=== PATIENT | female | born 1980 | race Two or more races ===

== ENCOUNTER 2024-05-05 14:10 | Outpatient (AMB) | payer OTHER, SELFPAY ==
--- NOTE | 2024-05-05 14:09 | HO.NEPHOV_ITS ---
Vital Signs 05/05/24 14:11 Height 5 ft 2 in Weight 123 lb BMI 22.5 Pulse 79 Pulse Source Pulse Oximeter Pulse Oximetry (%) 99 Oxygen Delivery Method Room Air Intake Visit Reasons: Persistent Hypotension/ Conf Chief Power Dispatcher Required: No Accompanied by: Spouse Allergies epinephrine Allergy (Verified 05/05/24 14:13) Unknown Iodinated Contrast Media Allergy (Verified 05/05/24 14:13) Unknown lidocaine Allergy (Verified 05/05/24 14:13) Unknown morphine Allergy (Verified 05/05/24 14:13) Unknown seafood Allergy (Verified 05/05/24 14:13) Unknown sulfadiazine Allergy (Verified 05/05/24 14:13) Unknown HPI Comments Details: I had the privilege of seeing Fatou in consultation for hypotension. She was accompanied by her . She recently has been having multitude of various symptoms for which she has seen GI, ENT, pulmonary and refinery operator visbreaking. She had a normal EGD. She was also seen by speech therapist who recommended modified barium swallow test. 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 MS or GBS was considered and she is due to have a neurological consultation. Her acetone choline receptor antibody test was normal. She continues to have persistent fatigue and hypotension. Her neurology appointment is in [place]. She is due to have an MRA of the brain with and without contrast. She also was found to have unintended weight loss. In the past she was taking Florinef which was causing her swelling. She has no urinary symptoms. She is not known to have any hypoglycemia, hyperkalemia, tachycardia. She does not have chest pain, paroxysmal nocturnal dyspnea, orthopnea or pedal edema. She is concerned about her ongoing symptoms without having a diagnosis. [facility] Medical History (Updated 06/08/24 @ 16:47 by Jean Claude Alarcon MD) Rosacea Prediabetes Polymorphous light eruption MARISELA (obstructive sleep apnea) Narrow complex tachycardia Mild intermittent asthma Migraine Hordeolum eyelid Heartburn GERD (gastroesophageal reflux disease) Fibromyalgia Chronic venous insufficiency Cervical spondylolysis Carpal tunnel syndrome Anxiety and depression Allergic rhinitis ADHD Surgical History H/O esophagogastroduodenoscopy Family History Father Asthma CAD (coronary artery disease) Depression Mother Migraine Sister Anxiety Review of Systems Const All systems reviewed & are unremarkable except as noted in HPI and below Physical Exam Vital Signs: Last Vital Signs Pulse 79 05/05/24 14:11 Pulse Ox 99 05/05/24 14:11 Oxygen Delivery Method Room Air 05/05/24 14:11 BMI result Body Mass Index 22.5 Const General: comfortable and no acute distress Orientation/consciousness: patient oriented x3 HEENT Head: Yes normocephalic Mouth: Normal oral and palatal mucosa present Eyes EOM: EOMs intact bilaterally Neck Neck: Yes supple Resp Auscultation: clear to auscultation bilaterally Cardio Jugular venous distension: no JVD Rate: regular rate GI Palpation (GI): Soft to palpation Auscultation: normal bowel sounds General: Yes no CVA tenderness Back/Spine/Pelvis Back: no CVA tenderness Skin General skin exam: no rashes or lesions noted Neuro General: patient oriented x3 and moves all extremities Extrem General: Yes no pedal edema Results Reviewed Nephrology Results: No Data to Display Assessment & Plan Assessment & Plan (1) Hypotension: Code(s): I95.9 - Hypotension, unspecified Category: Medical Qualifiers: Hypotension type: other hypotension type Qualified Code(s): I95.89 - Other hypotension Plan Fatou has multitude of symptoms and has seen various specialists. He is not known to have hyperkalemia, tachycardia, urinary symptoms, fever. I ordered serum cortisol and metanephrines. She is not known to have any liver disease, renal disease or cardiomyopathy. She is not sure whether she had an echocardiogram. She is due to see neurologist in [place]. I have started her on midodrine. She had taking Florinef in the past which has caused salt and water retention. She has never tried Droxidopa. She has no family history of any similar disorder. She was asked to maintain good hydration and wear MATHEW stockings. I will consider doing a 24 hour ambulatory blood pressure monitor on her ,pending how she is doing clinically the next visit. I did not make any other medication changes. Follow-up appointment given. Orders: Orders Cortisol Random 05/05/24 I95.9 - Hypotension, unspecified Metanephrines, Plasma 05/05/24 I95.9 - Hypotension, unspecified Medications: New midodrine 5 mg PO BID 60 tabs 3RF Coding Level of Care Code New Pt Level 4 (71937) Diagnoses Other specified hypotension I95.89 Hypotension type: other hypotension type
[2024-05-05 14:11] VITALS: PULSE 79; O2SAT 99; BMI 22.5
== END 2024-05-05 15:14 | disposition home or self-care (01) ==
PROVIDERS: PCP Internal Medicine; Visit Provider Internal Medicine Nephrology
DX: I95.89 Other hypotension (principal)
CPT/HCPCS: 99204

== ENCOUNTER → 2024-05-05 14:10 | Outpatient (BNVA) | payer OTHER, SELFPAY | PROVIDERS: PCP Internal Medicine; Visit Provider Internal Medicine Nephrology ==

== ENCOUNTER 2024-07-21 12:23 | Outpatient (AMB) | payer OTHER, SELFPAY ==
[2024-07-21 12:27] VITALS: BP 104/60; PULSE 75; O2SAT 99; BMI 22.5
--- NOTE | 2024-07-21 12:27 | HO.NEPHOV ---
Vital Signs 07/21/24 12:27 Height 5 ft 2 in Weight 123 lb 4 oz BMI 22.5 BP 104/60 Blood Pressure Location Rt brachial Position Sitting Pulse 75 Pulse Source Pulse Oximeter Pulse Oximetry (%) 99 Oxygen Delivery Method Room Air Intake Visit Reasons: Persistent Hypotension/ LVM Drywall Professional Required: No Accompanied by: Daughter Allergies epinephrine Allergy (Verified 07/21/24 12:30) Unknown Iodinated Contrast Media Allergy (Verified 07/21/24 12:30) Unknown lidocaine Allergy (Verified 07/21/24 12:30) Unknown morphine Allergy (Verified 07/21/24 12:30) Unknown seafood Allergy (Verified 07/21/24 12:30) Unknown sulfadiazine Allergy (Verified 07/21/24 12:30) Unknown HPI Comments Details: I had the privilege of seeing Fatou in follow up for hypotension. She was accompanied by her daughter. She recently has been having multitude of various symptoms for which she has seen GI, ENT, pulmonary and paralegal specialist. She had a normal EGD. She was also seen by speech therapist who recommended modified barium swallow test. 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 MS or GBS was considered and she had a neurological consultation in [place]. Her acetone choline receptor antibody test was normal. She had persistent fatigue and hypotension, but better. In the past she was taking Florinef which was causing her swelling. She has no urinary symptoms. She is not known to have any hypoglycemia, hyperkalemia, tachycardia. She does not have chest pain, paroxysmal nocturnal dyspnea, orthopnea or pedal edema. She was given Midodrine at the last visit which she could not continue due to side effects. [facility] Medical History (Updated 06/08/24 @ 16:47 by Jean Claude Alarcon MD) Rosacea Prediabetes Polymorphous light eruption MARISELA (obstructive sleep apnea) Narrow complex tachycardia Mild intermittent asthma Migraine Hordeolum eyelid Heartburn GERD (gastroesophageal reflux disease) Fibromyalgia Chronic venous insufficiency Cervical spondylolysis Carpal tunnel syndrome Anxiety and depression Allergic rhinitis ADHD Surgical History H/O esophagogastroduodenoscopy Family History Father Asthma CAD (coronary artery disease) Depression Mother Migraine Sister Anxiety Review of Systems Const All systems reviewed & are unremarkable except as noted in HPI and below Physical Exam Vital Signs: Last Vital Signs Pulse 75 07/21/24 12:27 BP 104/60 07/21/24 12:27 Pulse Ox 99 07/21/24 12:27 Oxygen Delivery Method Room Air 07/21/24 12:27 BMI result Body Mass Index 22.5 Const General: comfortable and no acute distress Orientation/consciousness: patient oriented x3 HEENT Head: Yes normocephalic Mouth: Normal oral and palatal mucosa present Eyes EOM: EOMs intact bilaterally Neck Neck: Yes supple Resp Auscultation: clear to auscultation bilaterally Cardio Jugular venous distension: no JVD Rate: regular rate GI Palpation (GI): Soft to palpation Auscultation: normal bowel sounds General: Yes no CVA tenderness Back/Spine/Pelvis Back: no CVA tenderness Skin General skin exam: no rashes or lesions noted Neuro General: patient oriented x3 and moves all extremities Extrem General: Yes no pedal edema Results Reviewed Nephrology Results: No Data to Display Assessment & Plan Assessment & Plan (1) Hypotension: Code(s): I95.9 - Hypotension, unspecified Category: Medical Qualifiers: Hypotension type: other hypotension type Qualified Code(s): I95.89 - Other hypotension Plan Fatou had multitude of symptoms and has seen various specialists. He is not known to have hyperkalemia, tachycardia, urinary symptoms, fever. At the last visit I ordered serum cortisol and metanephrines, which were not done yet. She is not known to have any liver disease, renal disease or cardiomyopathy. She is not sure whether she had an echocardiogram. She has seen neurologist in [place] who has done work up. She could not tolerate midodrine. She had taking Florinef in the past which has caused salt and water retention, which I may consider startimg at a lower dose if needed. She has never tried Droxidopa. She has no family history of any similar disorder. She was asked to maintain good hydration and wear MATHEW stockings. I did not make any other medication changes. Follow-up appointment given Coding Level of Care Code Est Pt Level 4 (27455) Diagnoses Other specified hypotension I95.89 Hypotension type: other hypotension type
== END 2024-07-21 12:54 | disposition home or self-care (01) ==
PROVIDERS: PCP Internal Medicine; Visit Provider Internal Medicine Nephrology
DX: I95.89 Other hypotension (principal)
CPT/HCPCS: 99213

== ENCOUNTER → 2024-07-21 12:23 | Outpatient (BNVA) | payer OTHER, SELFPAY | PROVIDERS: PCP Internal Medicine; Visit Provider Internal Medicine Nephrology ==

== ENCOUNTER 2025-01-14 09:52 | Outpatient (AMB) | payer OTHER, SELFPAY ==
--- NOTE | 2025-01-14 10:01 | HO.NEPHOV_ITS ---
Vital Signs 01/14/25 10:03 Height 5 ft 2 in Weight 131 lb 2 oz BMI 24.0 BP 90/60 Blood Pressure Location Rt brachial Position Sitting Intake Visit Reasons: Persistent Hypotension-LVM Automobile Wrecker Required: No Accompanied by: Self / Same As Patient Allergies epinephrine Allergy (Verified 01/14/25 10:03) Unknown Iodinated Contrast Media Allergy (Verified 01/14/25 10:03) Unknown lidocaine Allergy (Verified 01/14/25 10:03) Unknown morphine Allergy (Verified 01/14/25 10:03) Unknown seafood Allergy (Verified 01/14/25 10:03) Unknown sulfadiazine Allergy (Verified 01/14/25 10:03) Unknown HPI Comments Details: I had the privilege of seeing Fatou in follow up for hypotension. She was accompanied by her daughter. She recently has been having multitude of various symptoms for which she has seen GI, ENT, pulmonary and superintendent tests. She had a normal EGD. She was also seen by speech therapist who recommended modified barium swallow test which was fine. 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 MS or GBS was considered and she had a neurological follow up in [place]. Her acetone choline receptor antibody test was normal. She had persistent fatigue and hypotension, but better. In the past she was taking Florinef which was causing her swelling. She has no urinary symptoms. She is not known to have any hypoglycemia, hyper kalemia, tachycardia. She does not have chest pain, paroxysmal nocturnal dyspnea, orthopnea or pedal edema. She was given Midodrine at the last visit which she could not continue due to side effects [facility] Medical History (Updated 06/08/24 @ 16:47 by Jean Claude Alarcon MD) Rosacea Prediabetes Polymorphous light eruption MARISELA (obstructive sleep apnea) Narrow complex tachycardia Mild intermittent asthma Migraine Hordeolum eyelid Heartburn GERD (gastroesophageal reflux disease) Fibromyalgia Chronic venous insufficiency Cervical spondylolysis Carpal tunnel syndrome Anxiety and depression Allergic rhinitis ADHD Surgical History H/O esophagogastroduodenoscopy Family History Father Asthma CAD (coronary artery disease) Depression Mother Migraine Sister Anxiety Review of Systems Const All systems reviewed & are unremarkable except as noted in HPI and below Physical Exam Const General: comfortable and no acute distress Orientation/consciousness: patient oriented x3 HEENT Head: Yes normocephalic Mouth: Normal oral and palatal mucosa present Eyes EOM: EOMs intact bilaterally Neck Neck: Yes supple Resp Auscultation: clear to auscultation bilaterally Cardio Jugular venous distension: no JVD Rate: regular rate GI Palpation (GI): Soft to palpation Auscultation: normal bowel sounds General: Yes no CVA tenderness Back/Spine/Pelvis Back: no CVA tenderness Skin General skin exam: no rashes or lesions noted Neuro General: patient oriented x3 and moves all extremities Extrem General: Yes no pedal edema Results Reviewed Nephrology Results: No Data to Display Assessment & Plan Assessment & Plan (1) Hypotension: Code(s): I95.9 - Hypotension, unspecified Category: Medical Qualifiers: Hypotension type: other hypotension type Qualified Code(s): I95.89 - Other hypotension Plan Fatou had multitude of symptoms and has seen various specialists. He is not known to have hyperkalemia, tachycardia, urinary symptoms, fever. She is not known to have any liver disease, renal disease or cardiomyopathy. She is not sure whether she had an echocardiogram. She has seen neurologist in [place] who has done work up. She could not tolerate midodrine. She had taking Florinef in the past which has caused salt and water retention, which I may consider startimg at a lower dose if needed. She has never tried Droxidopa. She has no family history of any similar disorder. She was asked to maintain good hydration and wear MATHEW stockings. I did not make any other medication changes. Follow-up appointment given Coding Level of Care Code Est Pt Level 4 (97818) Diagnoses Other specified hypotension I95.89 Hypotension type: other hypotension type
[2025-01-14 10:03] VITALS: BP 90/60; BMI 24.0
--- OUTSIDE RECORDS SUMMARY | 2025-01-14 11:11 | XMS_ITS | Clinical Summary ---
Author Organization [facility] ity Address [address] [place] [address] Care Team Providers Care Cooker Mechanic Name Role Phone Gregory Cherry MD Primary Care Provider [phone] Medical History Medical History Date Comments Migraine without aura, witho ut mention of intractable migraine without mention of status migrainosus 03/21/2006 DX:Migraine without aura , without mention of intractable migraine without mention of status migrainosus Anxiety state, unspecified 03/21/2006 DX:An xiety state, unspecified; COMMENT: panic attacks Family History Medical History Relation Name Comments Arthritis Maternal Grandmother said to have osteoporosis Relation Name Status Comments Father Alive Maternal Grandmother Mother Alive Social History Tobacco Use Types Packs/Day Years Used Date Smoking Tobacco: Never Alcohol Use Standard Drinks/Week Comments No 0 (1 standard drink = 0.6 oz pur e alcohol) Comments Unknown Sex and Gender Information Value Date Recorded Sex Assigned at Not on file Legal Sex Female 5:42 AM EST Gender Identity Not on file Sexual Orientation Not on file Obstetrics History Plan of Treatment Health Maintenance Due Date Last Done Comments Breast Cancer Screening 1980 DTaP,Tdap,and Td Vaccines (1 - Tdap) 1999 Hepatitis B Vaccines (1 of 3 - 19+ 3-dose series) 1999 Cervical Cancer Screening: P ap Smear 2001 Depression Screening 11/20/2023 HIV Screening 11/20/2023 Hepatitis C Screening 11/20/2023 Social Influencers of Health Screening 11/20/2023 COVID-19 Vaccine (2023-2 5 season) 2024 Influenza Vaccine (#1) 2024 HIB Vaccines Aged Out No longer eligi ble based on patient's age to complete this topic HPV Vaccines Aged Out No longer eligi ble based on patient's age to complete this topic Hepatitis A Vaccines Aged Out No long er eligible based on patient's age to complete this topic IPV Vaccines Aged Out No longer eligi ble based on patient's age to complete this topic MMR Vaccines Aged Out No longer eligi ble based on patient's age to complete this topic Meningococcal ACWY Vaccine Aged Out N o longer eligible based on patient's age to complete this topic Meningococcal B Vacine Aged Out No lo nger eligible based on patient's age to complete this topic Pneumococcal Vaccine: Pediat rics (0 to 5 Years) and At-Risk Patients (6 to 64 Years) Aged Out No longer eligible b ased on patient's age to complete this topic RSV Immunization Patients Un samreen 20 months Aged Out No longer eligible b ased on patient's age to complete this topic Varicella Vaccines Aged Out No longer eligible based on patient's age to complete this topic Care Teams Cooker Mechanic Relationship Specialty Start Date End Date Gregory Cherry MD [address] [place] [id number] PCP - General 05/31/10
--- OUTSIDE RECORDS SUMMARY | 2025-01-14 11:11 | XMS_ITS ---
Author Name [facility] Organization Unknown History of Medication Use Medication Directions Dispensed Refills Start Date End Date Stat us OMEprazole (PriLOSEC) 40 MG capsule Take 1 capsule (40 mg total) by mouth every morning before breakfast. active famotidine (PEPCID) 20 MG tablet Take 1 tablet (20 mg total) by mouth nightly as needed for heartburn. active fexofenadine (PATRICIA) 60 MG tablet Take 1 tablet (60 mg total) by mouth 2 (two) times a day. Administer with water only; do not administer with fruit juices. active LORazepam (ATIVAN) 0.5 MG tablet Take 1 tablet (0.5 mg total) by mouth 3 times daily (every 8 hours) as needed. active barium sulfate (VARIBAR THIN) 40 % 36 g 36 g (90 mL), Oral, Once in imaging, contrast, Starting on Sun05/14/24 at 0857, For 1 dose, Radiology Appointment 05/14/2024 05/14/2024 completed barium sulfate (VARIBAR HONEY,VARIBAR NECTAR,TAGITOL V) 40 % 70 mL 70 mL, Oral, Once in imaging, contrast, Starting on Sun05/14/24 at 0857, For 1 dose, Radiology Appointment 05/14/2024 05/14/2024 completed barium sulfate (E-Z-DISK) tablet 700 mg 700 mg, Oral, Once in imaging, contrast, Starting on Sun05/14/24 at 0854, For 1 dose, Radiology Appointment 05/14/2024 05/14/2024 completed Problems Problem Status Onset Date Problem Type Date of Resolution Source Laryngopharyngeal reflux (LPR) active EncounterDiagnosisAct [facility] Dysphagia, pharyngoesophageal phase active EncounterDiagnosisAct [facility] Paradoxical vocal cord motion active EncounterDiagnosisAct [facility] Dysphonia active EncounterDiagnosisAct [facility] Encounters Encounter Type Encounter Reason Primary Diagnosis Location Date Ambulatory Dysphonia Dysphonia [facility] 01/07/2025 Ambulatory Dysphagia, unspecified [facility] Care Team Organization Name Specialty Phone Email Start Date End Da yael [facility] CIERRALUCAS Primary Care 05/14/2024 [facility] ANGE [facility] 05/14/2024 [facility] 04/29/2024
--- OUTSIDE RECORDS SUMMARY | 2025-01-14 11:11 | XMS_ITS | Encounter Summary ---
Author Organization [facility] Address [address] [place], [place] [id number] Care Team Providers Care Employment And Claims Aide Name Role Phone Carole Jensen MD Primary Care Provider Encounter Details Date Type Department Care Team (Latest Contact Info) Description 01/07/2025 Plan of Care Documentation [address] [phone] Social History Tobacco Use Types Packs/Day Years Used Date Smoking Tobacco: Never Smokeless Tobacco: Never Alcohol Use Standard Drinks/Week Comments Not Asked 0 (1 standard drink = 0.6 oz pur e alcohol) once or twice a month Sex and Gender Information Value Date Recorded Sex Assigned at Female 05/14/2024 8:25 AM EDT Gender Identity Female 05/14/2024 8:25 AM EDT Sexual Orientation Heterosexual (straight) 05/14 8:25 AM EDT documented as of this encounter Miscellaneous Notes * Outpatient Therapy SPOC - Marcela Vines CCC-ROLL CUTTER - 01/07/2025 1:50 PM EDT Images from the original note were not included. Speech Therapy Plan of Care Diagnoses ICD-10-CM 1. Dysphonia R49.0 2. Dysphagia, pharyngoesophageal phase R13.14 3. 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 Laryngopharyngeal reflux (LPR) K21.9 Assessment - SunJanuary 07, 2025 Row Name Evaluation from 01/07/2025 in [facility] Assessment Assessment details Pt is a 44 year old female referred to outpatient speech therapy for dysphonia by her ENT physician. PMH includes anxiety, asthma, fibromyalgia, GERD and a Chiari Malformation. Sheinitially saw ENT on 04/28/24 for c/o gradually worsening dysphagia, hoarseness and SOB. CT neck on 04/10 revealed soft palate appears slightly prominent in size locking the airway at the nasopharynx. There is mild asymmetry of the mucosal and oropharynx with the right side more prominent on the leftside. However, no focal lesion or abnormal enhancement. Per Dr. Mai's notes, voice is better in the morning and worse the more she talks with associated neck and facial pain/discomfort when talking. Laryngoscopy on 04/28/24 showed moderately severe atrophy bilaterally as well as signs of LPR. ENT suspected atrophy may be due to general deconditioning vs a symptom of her as yet undiagnosed condition. Concern for a neurological etiology; pt is being worked up by Neurology for sensory small fiber neuropathy. Modified Barium Swallow study on 05/14/24 revealed Minimal hesitation in initiation of oral transit. Normal Pharyngeal swallow across trials and consistencies, Intact oral motor exam, Hesitant initiation of oral transit, ?Anticipatory delay, Intact pharyngeal swallow- no airway compromise and no pharyngeal stasis, No esophageal stasis during esophageal sweep. Reportedly she has also had an upper endoscopy which was unrevealing. Pt also reports difficulty breathing and getting air in which happens on a daily basis. She feels out of breath/winded with talking, daily activities andalso at rest. She was given a diagnosis of asthma but does not recall pulmonary function testing orconsultation. This is made worse if cold air (e.g. air conditioning blows on her face. She was alsoreferred to pulmonology for dyspnea. Pt comes in today c/o hoarseness, difficulty singing (for fun/restorationist), reading for long periods of time. Her voice was worse in the past but she takes frequent vocal breaks. Symptoms began about a year ago.She reports it takes her long time to eat (? secondary to issues with TMJ) and her throat feels very dry, uncomfortable and very tight. She feels as though her vocal cords are pulled. Pt reports difficulty swallowing meats and thicker foods such as Greekyogurt. She continues to report difficulty breathing in especially if she exerts herself. She is uns ure of the results of her neurological testing but has been referred to rheumatology for ?Sjogren'sor Lupus. Clinical dysphagia and voice evaluations were completed today. Swallowing: Pt was assessed with puree, a dry cracker and thin liquids. Oral stage was a bit slow; ? Due to c/oTMJ; anticipatory anxiety re: swallowing may also play a role. Pharyngeal stage appeared fairly timely with good hyolaryngeal elevation. Pt c/o tightness with solids and there was some coughing with larger sips of thin liquids. However, pt c/o mucus and PND and she cleared her throat and occasiona lly coughed throughout today's evaluation. Given her normal results on an instrumental evaluation (MBS), suspect swallowing difficulties may be related to 1) muscle tension dysphagia and/or 2) esophageal deficits. Pt is not currently taking her medication for LPR regularly. Workup for Sjogren's is pending, and this disease is often associated with esophageal disorder. Recommend pt take her medication as prescribed (or check with provider as she does not like taking 40 mg of Omeprazole in the AM). GERD/LPR appears to be also related to her dysphonia and possible paradoxical vocal cord motion (See below). She could consider seeing a neuro GI-motility expert, especially if diagnosed with Sjogre n's. In the meantime, recommend she continue her regular diet with thin liquids with general aspiration precautions. Voice A variety of informal and formal assessment measures were used in today's session. 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 Pt's dysphonia is mild on formal testing but she reports a severe impact on her daily functioning. The Voice Handicap Index form (VHI, Karina et al., 1997) was administered to the patient. This gurvinder questionnaire style instrument designed to evaluate the degree negative impact on quality of lifesecondary to voice related difficulties. The VHI uses a 0-4 point scale to describe severity of impact felt in three domains (with scores in parentheses): functional (22/40-mod), physical (29/40-severe), and emotional (20/40-mod). The VHI score is 71/120 indicating that they feel severely impacted by function of voice. A superficial examination of pt's 's oral-facial musculature was conducted to assess the structure and function of articulators and their impact on speech and vocal mechanism. Their lips, tongue, jaw, hard palate, soft palate, and pharynx appeared symmetrical and within functional limits. Objective assessments were made of the patient's respiratory coordination while she sustained pitches and sibilants. The patient completed s:z ratio task which revealed 7.84 seconds for /s/ and 4.72 seconds for /z/ which is a ratio of 1.661, with a <1.4 norm. Patient was able to achieve a max phonation time /a/ for 6.71 seconds, with a 15-20 seconds norm. Laryngeal function studies were completed with the use of [employer] Speech, utilizing a dynamic handheldmicrophone. The /a/ vowel sound was sustained at ???a comfortable pitch and volume at 235.059 which was within the norm of 165-202 Hz (females in their 40's). Habitual pitch in reading phrases and passages (as well as at conversational level) was calculated to be 190.750 Hz, within norm of 165-202Hz (females in their 40's). Pitch range is 114.64 ranging from 173.95 Hz- 288.59 Hz. Average vocal intensity levels intensity of 59.4 dB, which is below norm. The Multi-Dimensional Voice Program (MDVP) was used to measure Jitter, Shimmer and the Noise to Harmonic Ratio (higher ratio indicative of increased dysphonia) on sustained ah. The patient's jitterwas measured at 1.036% (.633% (F with SD of .351)), shimmer at 1.599 % (shimmer: 1.997% (F with SD of .791)). The green indicates good vocal quality, and red indicates dysphonic qualities. The CPP (cepstral peak prominence) compares the amplitude of the cepstral peak (i.e., the dominant harmonic) to the expected amplitude of the peak as determined via linear regression. Their CPP on sustained ah was 7.885 dB, with norm of >4.0 dB. Their CPP on running speech was 3.595 dB. The higher the circled peak of cepstral energy above line, the better quality the voice demonstrates. /a/ Dickens passage Assessment of Dysphonia of Speech and Voice (ADSV) was used to measure Cepstral Spectral Index of Dysphonia (CSID), which is derived from the CPP (cepstral peak prominence), L/H ratio, and sex information through weighted multiple regression. CSID estimated dysphonia severity is a number between 0 and 100, with 100 being rated the most severe. However, at times, the CSID can generate a number below 0 or above 100; such an estimate represents an extremely normal and periodic voice or a profoundly abnormal and aperiodic voice, respectively. As such, the Cepstral Spectral Index of Dysphonia (CSID) is used to compare dysphonia severity over time. The patient's rating of their sustained ah is 8 8.361 today which is classified as a severe dysphonia (mild: 0-33, moderate: 34- 66, and severe: 67-100). CSID for CAPE-V Sentences is 16.72 which is classified as a mild dysphonia (mild: 0-33, moderate: 34-66, and severe: 67-100). Given pt's complaints, also suspect possibility of paradoxical cord motion which may be leading to her difficulty with inspiration. Pt also c/o some inspiratory stridor (not observed today). Pt scored a 41 on the Vocal Cord Dysfunction Questionnaire (normal is below 12). She would therefore benefitfrom breathing exercises for PVCM and possibly inspiratory muscle training. In summary, pt presents with a variety of voice and swallowing complaints which may be related to vocal cord atrophy, compensatory muscle tension, ? esophageal deficits, LPR. She would benefit from skilled speech therapy 1x/week to address swallowing and voice, to include laryngeal relaxation/kenny therapy, LPR education, Vocal Function Exercises, PVCM breathing exercises, and respiratory muscletraining. Speech therapy is medically indicated to improve her safety, social and vocational functioning. POC Details Precautions none Barriers to therapy no Special communication needs no Does patient require additional social and vocational services? no Prognosis Good Swallow Interventions Compensatory Strategies;Manual Exercises;Patient Education;HEP ROLL CUTTER Interventions Voice;Patient Education;HEP Frequency 1x week Duration 12 weeks Goals Patient was involved in setting goals. Patient is aware of these goals, risks, benefit of thetreatment and alternatives along with being aware and understanding of the diagnosis and prognosis.The Patient agrees with the goals and treatment plan Certification start date 01/07/25 Certification end date 04/07/25 Goals (5 Years of Data) Speech Therapy ST LTG 1 Notes Pt's score on the EAT-10 questionnaire will improve by at least [address] LTG 2 Notes Pt score on the Vocal Handicap Index will decrease by at least [address] LTG 3 Notes Pt's score on the Vocal Cord Dysfunction Questionnaire will decrease by at least [address] LTG 4 Notes Pt will independently complete respiratory strength training exercises 70% of MEP/MIP for 25/25 repetitions to improve swallowing and breath support for voice. ST STG 1 Notes To optimize laryngeal functioning while minimizing strain, pt will use resonant voice and/or improved breath support at the sentence level with 80% accuracy/min cues. ST STG 2 Notes To optimize laryngeal functioning while minimizing strain, pt will complete Vocal Function Exercises independently. ST STG 3 Notes Pt will indep complete breathing exercises for paradoxical vocal cord motion. ST STG 4 Notes Pt will use laryngeal relaxation exercises to reduce tension from moderate to mild. By signing this Plan of Care you are authorizing therapy according to the written plan of care for the above mentioned certification dates. documented in this encounter Plan of Treatment Upcoming Encounters Date Type Department Care Team (Late st Contact Info) Description 01/14/2025 1:00 PM EDT Treatment [address] [phone] Marcela Vines CCC-SLP [address] [place] [address] 01/20/2025 1:30 PM EDT Treatment [address] [phone] Marcela Vines CCC-SLP [address] [place] [address] 01/28/2025 10:30 AM EDT Treatment [address] [place] [phone] Marcela Vines CCC-SLP [address] [place] [address] 02/04/2025 10:30 AM EDT Treatment [facility] [address] [facility] [address] Marcela Vines CCC-ROLL CUTTER [address] [facility] [place] [address] 02/11/2025 10:30 AM EDT Treatment [facility] [address] [facility] [address] Marcela Vines CCC-ROLL CUTTER [address] [facility] [place] [address] 02/18/2025 10:30 AM EDT Treatment [facility] [address] [facility] [address] Marcela Vines CCC-SLP [address] [facility] [place] [address] documented as of this encounter Goals Goal Patient Goal Type Associated Problems Recent Progress Patient-Stated? Author ST LTG 1 Speech Therapy No Marcela Vines CCC-SLP Note: Pt's score on the EAT-10 questionnaire will improve by at least [address] LTG 2 Speech Therapy No Marcela Vines CCC-SLP Note: Pt score on the Vocal Handicap Index will decrease by at least [address] LTG 3 Speech Therapy No Marcela Vines CCC-SLP Note: Pt's score on the Vocal Cord Dysfunction Questionnaire will decrease by at least [address] STG 1 Speech Therapy No Marcela Vines CCC-SLP Note: To optimize laryngeal functioning while minimizing strain, pt will use resonant voice and/or improved breath support at the sentence level with 80% accuracy/min cues. ST STG 2 Speech Therapy No Marcela Vines CCC-SLP Note: To optimize laryngeal functioning while minimizing strain, pt will complete Vocal Function Exercises independently. ST STG 3 Speech Therapy No Marcela Vines CCC-ROLL CUTTER Note: Pt will indep complete breathing exercises for paradoxical vocal cord motion. ST STG 4 Speech Therapy No Marcela Vines CCC-ROLL CUTTER Note: Pt will use laryngeal relaxation exercises to reduce tension from moderate to mild. ST LTG 4 Speech Therapy No Marcela Vines CCC-ROLL CUTTER Note: Pt will independently complete respiratory strength training exercises 70% of MEP/MIP for 25/25 repetitions to improve swallowing and breath support for voice. documented as of this encounter Visit Diagnoses Not on filedocumented in this encounter Care Teams Employment And Claims Aide Relationship Specialty Start Date End Date Carole Jensen MD [address] [place] [id number] PCP - General Internal Medicine 05/14/24 documented as of this encounter
--- OUTSIDE RECORDS SUMMARY | 2025-01-14 11:11 | XMS_ITS | Encounter Summary ---
Author Organization [facility] Address [address] [place] [address] Care Team Providers Care Dumper Name Role Phone Carole Jensen MD Primary Care Provider Reason for Visit * Reason Comments ST Evaluation ST Swallow Evaluation * Evaluation and Treatment (Elective) - Authorized Specialty Diagnoses / Procedures Referred By Contact Referred To Contact Speech-Language Pathologist / Rehabilitation Diagnoses Dysphonia Jazmine Mai MD [address] [place], [place] [id number] [address] [address] Referral ID Status Reason Start Date Expiration Date Visits Requested Visits Authorized [id number] Authorized Support Services 01/07/2025 10/21/2025 200 200 Encounter Details Date Type Department Care Team (Late st Contact Info) Description 01/07/2025 11:00 AM EDT Evaluation [facility]- [address] [phone] Jazmine Mai MD [address] [place] [address] Marcela Vines, [facility]-RESOURCE ROOM TEACHER [address] [place] [address] Dysphonia (Primary Dx); Dysphagia, pharyngoesophageal phase; Paradoxical vocal cord motion; Vocal cord atrophy; Laryngopharyngeal reflux (LPR) Social History Tobacco Use Types Packs/Day Years Used Date Smoking Tobacco: Never Smokeless Tobacco: Never Tobacco Cessation:Counseling Given: Not Answered Alcohol Use Standard Drinks/Week Comments Not Asked 0 (1 standard drink = 0.6 oz pur e alcohol) once or twice a month Sex and Gender Information Value Date Recorded Sex Assigned at Female 05/14/2024 8:25 AM EDT Gender Identity Female 05/14/2024 8:25 AM EDT Sexual Orientation Heterosexual (straight) 05/14 8:25 AM EDT documented as of this encounter Miscellaneous Notes * Evaluation/ Progress Note - Marcela Vines CCC-RESOURCE ROOM TEACHER - 01/07/2025 1:15 PM EDT Images from the original note were not included. Speech Therapy Initial Evaluation Diagnoses ICD-10-CM 1. Dysphonia R49.0 2. Dysphagia, pharyngoesophageal phase R13.14 3. 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 Laryngopharyngeal reflux (LPR) K21.9 Subjective - SunJanuary 07, 2025 Row Name Evaluation from 01/07/2025 in [facility] Subjective History Are you receiving any services at your home? no History of Present Illness Pt is a 44 year old female referred to outpatient speech therapy for dysphonia by her ENT physician. PMH includes anxiety, asthma, fibromyalgia, GERD and a Chiari Malformation. She initially saw ENT on 04/28/24 for c/o gradually worsening dysphagia, hoarseness and SOB. CT neck on 04/10 revealed soft palate appears slightly prominent in size locking the airway at the nasopharynx. There is mild asymmetry of the mucosal and oropharynx with the right side more prominent on the left side. However, no focal lesion or abnormal enhancement. Per Dr. Mai's notes, voice is better in the morning and worse the more she talks with associated neck and facial pain/discomfort whentalking. Laryngoscopy on 04/28/24 showed moderately severe atrophy bilaterally as well as signs of LPR. ENT suspected atrophy may be due to general deconditioning vs a symptom of her as yet undiagnosedcondition. Concern for a neurological etiology; pt is [...] out of breath/winded with talking, daily activities and also at rest. She was given a diagnosis of asthma but does not recall pulmonary function testing or consultation. This is made worse if cold air (e.g. air conditioning blows on her face. She was also referred to pulmonology for dyspnea. Pt comes in today c/o hoarseness, difficulty singing (for fun/islam), reading for long periods of time. Her [...] swallowing meats and thicker foods such as Bulgarian yogurt. She continues to report difficulty breathing in especially if she exerts herself. She is unsure of the results of her neurological testing but has been referred to rheumatology for ?Sjogren's or Lupus. Date of Onset referral 12/22/24; symptoms for about a year Have you fallen in past year? no Current Level of Function Mild to moderate dysphonia due to vocal cord atrophy, LPR and likely compensatory muscle tension, ?pharyngo-esophageal dysphagia (?muscle tension dysphagia), ? paradoxical cord motion Prior Level of Function WNL Social/ Occupational Status Lives in one story home Lives with significant other;adult children Social/ Occupational Status currently not working. used to be executive assistance for [employer] Hand dominance right-handed Education level 12th grade high school Cognition Comments Pt reports brain fog, cognition not assessed due to time constraints Oral/Motor - SunJanuary 07, 2025 Row Name Evaluation from 01/07/2025 in [facility] [place] Oral/Motor Labial ROM Within Functional Limits Labial Symmetry Within Functional Limits Labial Strength Within Functional Limits Lingual ROM Within Functional Limits Lingual Symmetry Within Functional Limits Lingual Strength Within Functional Limits Velum Within Functional Limits Palpable Tension suprahyoid musculature;infrahyoid musculature;cricothyroid notch moderate Facial ROM Within Functional Limits Facial Symmetry Within Functional Limits Facial Strength Within Functional Limits Dysarthria No Apraxia None present Intelligibility Intelligible Swallow Eval - SunJanuary 07, 2025 Row Name Evaluation from 01/07/2025 in [facility] Baseline Assessment Dysphagia history Please see History of Present Illness Respiratory Status Room air History of Intubation No Behavior/Cognition Alert;Cooperative;Pleasant mood Volitional Cough Strong pt reports her coughing does not feel as strong as baseline Volitional Swallow Within Functional Limits Solid Food Texture Trial Solid Consistency Trialed hard solids;soft solids;puree Oral Phase, Solid within functional limits;slow oral transit time Oral Residue, Solid within functional limits Pharyngeal Phase, Solid within functional limits;other (see comments) pt reports swallowing felt tight Liquid Texture Trial Liquid Consistency Trialed thin Mode of Presentation, Liquid cup;single sips;sequential swallows water bottle Oral Phase, Liquid within functional limits Oral Residue, Liquid no residue Pharyngeal Phase, Liquid coughing/choking Successful Strategies Trialed, Liquid small single sips Additional comments Pt with frequent cough/throat clear, ? due to mucus, not necessarily related Daniel; pt with SOB between sips Aspiration Risk Risk for Aspiration Mild Recommended Solid Consistency Diet Regular Recommended Liquid Consistency Thin Liquids Recommended Method of Medication Admin as tolerated Compensatory Swallowing Strategies Upright as possible for all oral intake;Eat/feed slowly;Small bites/sips Recommendations Dysphagia treatment Voice - SunJanuary 07, 2025 Row Name Evaluation from 01/07/2025 in [facility] Voice History Chief Complaint Hoarseness, can no longer sing, cannot read for long periods of time. Relationship Banker Findings / Diagnosis Laryngoscopy on 04/28/24 showed moderately severe atrophy bilaterally as well as signs of LPR. Onset A year ago Treatment History No previous ST Contributing Past Medical Hx Dysphagia;Acid Reflux / GERD Vocal Demands Occupation not currently working Singing Is unable to sing at present, previously sang at islam Other Pt reports difficulty reading long passages Vocal Health History Vocal Use Patterns Throat clearing;Chronic Cough Vocal Hygiene Caffeine Intake;Alcohol Use;Water Intake 1 cup of water/day; occasional glass of wine; water 4 16-oz bottles Voice Quality Hoarse Mild Wet Moderate Weak Moderate Vocal Intensity Moderately decreased Tension Laryngeal Moderate Palpable Tension Moderate Respiration Respiration Decreased Coordination of Resp/Phonation;Insufficient Support Standardized Tests- RESOURCE ROOM TEACHER - SunJanuary 07, 2025 Row Name 1300 OTHER RESOURCE ROOM TEACHER Assessments Swallowing;Voice Voice Assessments VHI 71 Swallowing Assessments EATS-10 EATS-10 24 EAT-10 Situation Response (0-4) 0 = No Problem 4 = Severe Problem 1. My swallowing problem has caused me to lose weight. 2 2. My swallowing problem interferes with my ability to go out for meals. 3 3. Swallowing liquids takes extra effort. 1 4. Swallowing solids takes extra effort 3 5. Swallowing pills takes extra effort. 3 6. Swallowing is painful. 2 7. The pleasure of eating is affected by my swallowing. 2 8. When I swallow food sticks in my throat. 3 9. I cough when I eat. 3 10. Swallowing is stressful. 2 TOTAL EAT-10 Score: 24 * If the EAT-10 score is 3 or higher, patient may have problems swallowing efficiently and safely. Score on Vocal Cord Dysfunction Questionnaire = 41, A score of 12 or below is considered normal Voice Handicap Index: Part I-F My voice makes it difficult to hear me. 3 People have difficulty understanding me in a noisy room. 3 My family has difficulty hearing me when I call them throughout the house. 3 I use the phone less often than I would like to. 3 I tend to avoid groups of people because of my voice. 3 I speak with friends, neighbors, or relatives less often because of my voice. 2 People ask me to repeat myself when speaking [id number]. 3 My voice difficulties restrict my personal and social life. 2 I feel left out of conversations because of my voice. 1 My voice problem causes me to lose income. 0 SUBTOTAL 22 Part II-P I run out of air when I talk. 3 The sound of my voice varies throughout the day. 3 People ask, What's wrong with your voice? 3 My voice sounds creaky and dry. 3 I feel as though I have to strain to produce voice. 3 The clarity of my voice is unpredictable. 3 I try to change my voice to sound different. 3 I use a great deal of effort to speak. 2 My voice is worse in the evening. 3 My voice gives out on me in the middle of speaking. 3 SUBTOTAL 29 Part III-E I am tense when talking to others because of my voice. 2 People seem irritated with my voice. 1 I find other people don't understand my voice problem. 2 My voice problem upsets me. 3 I am less outgoing because of my voice problem. 3 My voice makes me feel handicapped. 1 I feel annoyed when people ask me to repeat. 2 I feel embarrassed when people ask me to repeat. 2 My voice makes me feel incompetent. 2 I am ashamed of my voice problem. 1 SUBTOTAL 20 TOTAL 71 Assessment - SunJanuary 07, 2025 Row Name Evaluation from 01/07/2025 in [facility] Assessment Assessment details Pt is a 44 [...] in today c/o hoarseness, difficulty singing (for fun/islam), reading for long periods of time. Her [...] studies were completed with the use of [employer] Speech, utilizing a dynamic handheldmicrophone. The /a/ vowel sound was sustained at ???a comfortable pitch and volume at 235.059 which was within the norm of 165-202 Hz (females in their 40s). Habitual pitch in reading phrases and passages (as well as at conversational level) was calculated to be 190.750 Hz, within norm of 165- 202 Hz (females in their 40s). Pitch range is 114.64 ranging from 173.95 [...] the better quality the voice demonstrates. /a/ [place] passage Assessment of Dysphonia of Speech and [...] Good Swallow Interventions Compensatory Strategies;Manual Exercises;Patient Education;HEP RESOURCE ROOM TEACHER Interventions Voice;Patient Education;HEP Frequency 1x week Duration [...] to reduce tension from moderate to mild. Treatment Performed: Interventions - SunJanuary 07, 2025 Row Name Evaluation from 01/07/2025 in [facility] [place] Swallow Intervention Swallow Justification Skilled dysphagia therapy is medically necessary to improve strength of swallow musculature for safer functional swallow and to decrease risk of choking/aspiration during PO intake, which may subsequently lead to pulmonary illness/pneumonia. Swallow Interventions Pt/Family Education/Training;Compensatory Strategies Compensatory Strategies sit up 90 degrees, eat slowly, small sips/bites Pt/Family Education/Training Discussed that pt's swallowing issues may be due to 1) muscle tension dysphagia and/or 2) LPR/GERD. Pt is not regularly taking her medication for GERD, recommended that she do so. She is generally following dietary guidelines. Recommend pt continue with her current dietand precautions. Will provide with exercises to decrease muscle tension. Education provided that Sjogren's can cause significant esophageal difficulties. Pt may want to consider seeing a GI motility expert especially if diagnosed with Sjogren's. RESOURCE ROOM TEACHER Intervention RESOURCE ROOM TEACHER Interventions Voice Pt/Family Education/Training Discussed that we will provide with exercises to improve vocal cord functioning as well as decrease tension as there appears to be compensatory muscle tension. Pt in agreement with POC for 1x/week. BRIA Sánchez, participated in a portion of this treatment at the direction and under the direct supervision of the Speech Language Pathologist with the patient's consent. documented in this encounter Plan of Treatment Upcoming Encounters Date Type Department Care Team (Late st Contact Info) Description 01/14/2025 1:00 PM EDT Treatment [address] [place] [phone] Marcela Vines CCC-SLP [address] [place] [address] 01/20/2025 1:30 PM EDT Treatment [address] [place] [phone] Marcela Vines CCC-SLP [address] [place] [address] 01/28/2025 10:30 AM EDT Treatment [address] [place] [address] Marcela Vines CCC-SLP [address] [facility] [place] [address] 02/04/2025 10:30 AM EDT Treatment [address] [place] [address] Marcela Vines CCC-SLP [address] [facility] [place] [address] 02/11/2025 10:30 AM EDT Treatment [address] [place] [address] Marcela Vines CCC-SLP [address] [place] [address] 02/18/2025 10:30 AM EDT Treatment [facility] [place] [address], [place] [address] Marcela Vines CCC-SLP [address] [facility] [place] [address] documented as of this encounter Goals Goal Patient Goal Type Associated Problems Recent Progress Patient-Stated? Author [facility] 1 Speech Therapy No Marcela Vines CCC-SLP Note: Pt's score on the EAT-10 questionnaire will improve by at least 8 points. [facility] 2 Speech Therapy No Marcela Vines CCC-SLP Note: Pt score on the Vocal Handicap Index will decrease by at least 20 points. [facility] 3 Speech Therapy No Marcela Vines CCC-SLP Note: Pt's score on the Vocal Cord Dysfunction Questionnaire will decrease by at least 10 points. [facility] 1 Speech Therapy No Marcela Vines CCC-SLP Note: To optimize laryngeal functioning while minimizing strain, pt will use resonant voice and/or improved breath support at the sentence level with 80% accuracy/min cues. [facility] 2 Speech Therapy No Marcela Vines CCC-SLP Note: To optimize laryngeal functioning while minimizing strain, pt will complete Vocal Function Exercises independently. [facility] 3 Speech Therapy No Marcela Vines CCC-SLP Note: Pt will indep complete breathing exercises for paradoxical vocal cord motion. [facility] 4 Speech Therapy No Marcela Vines CCC-SLP Note: Pt will use laryngeal relaxation exercises to reduce tension from moderate to mild. [facility] 4 Speech Therapy No Marcela Vines CCC-SLP Note: Pt will independently complete respiratory strength training exercises 70% of MEP/MIP for 25/25 repetitions to improve swallowing and breath support for voice. documented as of this encounter Visit Diagnoses Diagnosis Dysphonia- Primary Dysphagia, pharyngoesophageal phase Paradoxical vocal cord motion Vocal cord atrophy Other diseases of vocal cords Laryngopharyngeal reflux (LPR) documented in this encounter Care Teams Dumper Relationship Specialty Start Date End Date Carole Jensen MD [address] [place] [address] PCP - General Internal Medicine 05/14/24 documented as of this encounter
--- OUTSIDE RECORDS SUMMARY | 2025-01-14 11:11 | XMS_ITS | Encounter Summary ---
Author Organization [facility] Address [address] [place] [address] Care Team Providers Care Corporate Real Estate Specialist Name Role Phone Pcp, No Primary Care Provider Carole Resendez MD Primary Care Provider Encounter Details Date Type Department Care Team (Late st Contact Info) Description 05/06/2024 Scanned Document [address] [facility] [address] [place] [phone] Radiology, Scan Social History Tobacco Use Types Packs/Day Years Used Date Smoking Tobacco: Never Assessed Sex and Gender Information Value Date Recorded Sex Assigned at Female 05/14/2024 8:25 AM EDT Gender Identity Female 05/14/2024 8:25 AM EDT Sexual Orientation Heterosexual (straight) 05/14 8:25 AM EDT documented as of this encounter Plan of Treatment Upcoming Encounters Date Type Department Care Team (Late st Contact Info) Description 01/14/2025 1:00 PM EDT Treatment [address] [phone] Marcela Vines CCC-DRIP PUMPER [address] [place] [address] 01/20/2025 1:30 PM EDT Treatment [address] [phone] Marcela Vines CCC-DRIP PUMPER [address] [place] [address] 01/28/2025 10:30 AM EDT Treatment [facility] [address] [place] [address] Marcela Vines [facility] [address] [place] [address] 02/04/2025 10:30 AM EDT Treatment [facility] [address] [facility] [place] [address] Marcela Vines [facility] [address] [place] [address] 02/11/2025 10:30 AM EDT Treatment [facility] [address] [facility] [place] [address] Marcela Vines [facility] [address] [place] [address] 02/18/2025 10:30 AM EDT Treatment [facility] [address] [place] [address] Marcela Vines, [facility] [address] [place] [address] documented as of this encounter Procedures Procedure Name Priority Date/Time Associated Diagnosis Comments HX OUTSIDE ORDER 05/06/2024 documented in this encounter Results * HX OUTSIDE ORDER (05/06/2024) Scan Radiology HX AMB PROCEDURES documented in this encounter Visit Diagnoses Not on filedocumented in this encounter Care Teams Corporate Real Estate Specialist Relationship Specialty Start Date End Date Pcp, No PCP - General General Medicine 05/07/24 05/13/24 Carole Jensen MD [address] [place] [phone] PCP - General Internal Medicine 05/14/24 documented as of this encounter
--- OUTSIDE RECORDS SUMMARY | 2025-01-14 11:11 | XMS_ITS | Patient Health Record ---
Author Organization [facility] Address [address] [facility] [address] [place] [address] Care Team Providers Care Cable Mechanic Name Role Phone Carole Jensen Primary Care Provider Jojo vailable Allergies Allergen (clinical drug ingredient) Drug/Non Drug Allergy documented on EMR Reaction Allergy Type Onset Date Status epinephrine Epinephrine Unknown Drug Allergy Act jono lidocaine Lidocaine Unknown Drug Allergy Active sulfadiazine Sulfadiazine Unknown Drug Allergy A ctive morphine Morphine Unknown Drug Allergy Active Reason For Referral No Information Medications Medication SIG (Take, Route, Frequency, Duration) Notes Start Date End Date Status Fludrocortisone Acetate 0.1 MG 1 tablet Orally Once a day Active predniSONE 20 MG 1 tablet Orally Once a day Not-Taking Diclofenac Sodium 1 % 1 gm to the right foot Externally three times a day for 30 days Active Propranolol HCl 10 MG 1 tablet Orally PRN Active Problems Problem Type SNOMED Code ICD Code Onset Dates Problem Status W/U Status Risk Notes Problem [id number] 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 Plan Of Treatment Pending Test Test Name Order Date X ray : Foot, right 3v 02/05/2023 Insurance Providers Payer Name Payer Address Payer Phone Subscriber Number Group Number Insured Name Patient Relationship to Insured Coverage Start Date Coverage End Date [employer] [address] [place] [phone] [id number] Fatou Frausto Self - patient is the insured Medical (General) History Medical History History ICD Code anxiety chronic venous insufficiency depression fibromyalgia heartburn migraine narrow complex tachycardia polymorphous light eruption rosacea right foot pain + COVID 07/2022 COVID vaccinated X 3 Surgical History Surgery Date(Month/Year) wisdom teeth extraction Hospitalization History Reason Date(Month/Year) tachycardia 12/2022 tachycardia 11/2022 vaginal delivery (girl) 2017 vaginal delivery (girl) 2001
--- OUTSIDE RECORDS SUMMARY | 2025-01-14 11:11 | XMS_ITS | Encounter Summary ---
Author Organization [facility] Address [address] [place], [place] [id number] Care Team Providers Care Assurance Sourcing Manager Name Role Phone Carole Jensen MD Primary Care Provider Reason for Referral * Evaluation and Treatment (Elective) - Authorized Specialty Diagnoses / Procedures Referred By Contact Referred To Contact Speech-Language Pathologist / Rehabilitation Diagnoses Dysphonia Jazmine Mai MD [address] [place], [place] [phone] [facility] [place] [address] [place] [phone] Referral ID Status Reason Start Date Expiration Date Visits Requested Visits Authorized [id number] Authorized Support Services 01/07/2025 10/21/2025 200 200 Question Answer Fiberoptic Endoscopic Evaluation of Swallowing (FEES) may be performed, if clinically indicated? Yes Is this referral for gender affirming care? No Is this referral for a Modified Barium Swallow Study with Speech Therapy? No Encounter Details Date Type Department Care Team (Late st Contact Info) Description 12/22/2024 Transcribe Orders [facility]- [address] [phone] Jazmine Mai MD [address] [place] [address] Dysphonia (Primary Dx) Social History Tobacco Use Types Packs/Day Years [...] Info) Description 01/14/2025 1:00 PM EDT Treatment [address] [place] [address] Marcela Vines [facility] [address] [place] [address] 01/20/2025 1:30 PM EDT Treatment [address] [place] [address] Marcela Vines [facility] [address] [place] [address] 01/28/2025 10:30 AM EDT Treatment [address] [place] [address] Marcela Vines [facility] [address] [place] [address] 02/04/2025 10:30 AM EDT Treatment [address] [place] [address] Marcela Vines [facility] [address] [place] [address] 02/11/2025 10:30 AM EDT Treatment [address] [place] [address] Marcela Vines [facility] [address] [place] [address] 02/18/2025 10:30 AM EDT Treatment [facility] [place] [address] [place] [address] Marcela Vines, [facility]-MAINTENANCE MANAGER [address] [place] [address] Scheduled Referrals Name Type Priority Associated Diagnoses Orde r Schedule Amb Referral to Speech Therapy Outpatient Referral Routine Dysphonia Ordered: 12/22/2024 documented as of this encounter Visit Diagnoses Diagnosis Dysphonia- Primary documented in this encounter Care Teams Assurance Sourcing Manager Relationship Specialty Start Date End Date Carole Jensen MD [address] [place] [address] PCP - General Internal Medicine 05/14/24 documented as of this encounter
--- OUTSIDE RECORDS SUMMARY | 2025-01-14 11:11 | XMS_ITS ---
Author Organization [facility] Address [address] [place] [phone] Care Team Providers Care Clay Structure Builder And Servicer Name Role Phone Carole Jensen Primary Care Provider Jojo LAURA Luna Unavailable [phone] Allergies Allergen (clinical drug ingredient) Drug/Non Drug Allergy documented on EMR Reaction Allergy Type Onset Date Status epinephrine Epinephrine Unknown Drug Allergy Act jono lidocaine Lidocaine Unknown Drug Allergy Active sulfadiazine Sulfadiazine Unknown Drug Allergy A ctive morphine Morphine Unknown Drug Allergy Active REASON FOR VISIT Lt foot hot sensation that comes and goes, difficulty bearing weight without discomfort Medications Medication SIG (Take, Route, Frequency, Duration) Notes Start Date End Date Status Fludrocortisone Acetate 0.1 MG 1 tablet Orally Once a day Active predniSONE 20 MG 1 tablet Orally Once a day Not-Taking Diclofenac Sodium 1 % 1 gm to the right foot Externally three times a day for 30 days Active Propranolol HCl 10 MG 1 tablet Orally PRN Active Encounters Encounter Location Date Provider Diagnosis [facility] [address] [place] [phone] 09/04/2023 LAURA LILLY Sural neuritis, left G57.82 and Pain in left foot M79.672 Assessments Encounter Date Diagnosis (ICD Code) Assessment Notes Treatment Notes Treatment Clinical Notes Section Notes 09/04/2023 Sural neuritis, left (ICD-10 - G57.82) This is an outpatient visit for evaluation and management of an established patient, which required appropriate review of pertinent medical history, review of any previous imaging, review of all previous records, and examination and decision-making. Time was 15 minutes spent in review of all these facets including face to face discussion with the patient regarding my findings and in discussion of a current and future treatment plan. I discussed that her pain seems to be neurological in origin. We discussed that this is likely a nerve compression. We discussed if a nerve was pinched, it can take 3-6 months to improve. We discussed this could be coming from her spine. I reviewed that nerve pain is different from musculoskeletal pain. It appears to affect the sural nerve. I reviewed symptoms management with EMLA cream or alpha lipoic acid. I also reviewed a possible EMG/NCV if this does not improve. She states the discomfort is not terrible, and she feels this has been improving. She would like to wait on the nerve test and treatment. She will contact my office if she does not feel improvement. 09/04/2023 Pain in left foot (ICD-10 - M79.672) Plan Of Treatment Treatment Notes Assessment Notes Sural neuritis, left This is an outpatient visit for evaluation and management of an established patient, which required appropriate review of pertinent medical history, review of any previous imaging, review of all previous records, and examination and decision-making. Time was 15 minutes spent in review of all these facets including face to face discussion with the patient regarding my findings and in discussion of a current and future treatment plan. I discussed that her pain seems to be neurological in origin. We discussed that this is likely a nerve compression. We discussed if a nerve was pinched, it can take 3-6 months to improve. We discussed this could be coming from her spine. I reviewed that nerve pain is different from musculoskeletal pain. It appears to affect the sural nerve. I reviewed symptoms management with EMLA cream or alpha lipoic acid. I also reviewed a possible EMG/NCV if this does not improve. She states the discomfort is not terrible, and she feels this has been improving. She would like to wait on the nerve test and treatment. She will contact my office if she does not feel improvement. Next Appt Details Follow Up: prn, Reason: Progress Notes * Carloz FRAUSTOOB: 1 (42 yo F)Acc No.[id number]:09/04/2023 Progress Notes Patient:?Fatou FRAUSTO Provider:?Laura Lilly DPM :1980???Age:42 Y???Sex:Female D ate:09/04/2023 Address: [address], [place], [id number] Pcp:Carole Jensen Subjective: * Chief Complaints: * ???Lt foot hot sensation joe t comes and goes, difficulty bearing weight without discomfort * HPI: ???Constitutional:? This 42 y/o female returns to my office with a complaint of left foot pain for the last 2 months. She denies any trauma or injury to the foot. She denies any new pains or issues with her lower back. She describes an occasional burning pain on the top of the left foot. She states it sometimes radiates across the top of the foot. She also notes one day when she had a sharp burning pain under the foot which lasted for a day. She states this was very painful, and she could barely put weight on the foot. This has since resolved. She has no other foot complaints this visit. * ROS:?GENERAL: Pt denies nausea, fever, vomiting, chills, or shortness of breath. Pt in NAD. ALLERGY: patient denies any new allergy HEME/ONC: patient denies any bleeding or clotting disorders CARDIOLOGY: pt denies chest pain, patient has been having increased tachycardia since sick. LUNGS: pt denies shortness of breath ABDOMEN: patient denies any bloating, abdominal pain, or swelling MUSCULOSKELETAL: See HPI, otherwise no joint pain or swelling, back pain, or muscle pain. SKIN: see HPI, otherwise no lesions, rash or itching NEURO: No persistent headache, weakness or numbness PSYCH: patient denies any current anxiety or depression The remainder of the review of systems is noncontributory. * Medical History:? * Surgical History:?wisdom saúl th extraction * Hospitalization/Major Diagno stic Procedure:?vaginal delivery (girl) 2002vaginal delivery (girl) 2017tachycardia 11/2022tachycardia 12/2022 * Family History:?Father: asth ma, CAD- coronary artery disease, depression.?Mother: migraine.?Paternal aunt: breast cancer.?Maternal aunt: breast cancer.?Siblings: sister- anxiety.?2 daughter(s) . .? FH: aneurysm of blood vessel of brain, hyperlipidemia, hypertension, stroke. * Social History:?Tobacco: no Alcohol: no. * Medications:?TakingPropranol ol HCl 10 MG Tablet 1 tablet Orally PRN Fludrocortisone Acetate 0.1 MG Tablet 1 tablet Orally Once a day Diclofenac Sodium 1 % Gel 1 gm to the right foot Externally three times a day Taking Propranolol HCl 10 MG Tablet 1 tablet Orally PRN Taking Fludrocortisone Acetate 0.1 MG Tablet 1 tablet Orally Once a day Taking Diclofenac Sodium 1 % Gel 1 gm to the right foot Externally three times a day Not-TakingpredniSONE 20 MG Tablet 1 tablet Orally Once a day Not-Taking predniSONE 20 MG Tablet 1 tablet Orally Once a day * Allergies:?EpinephrineLidoca ineMorphineSulfadiazine Objective: * Examination: ???General Examination: ???GENERAL: Patient appears well nourished, with NAD. ?VASCULAR: Dorsalis pedis pulses are 2/4 bilaterally and Posterior tibial pulses are 2/4 bilaterally. Capillary filling time within normal limits the digits. No pallor on elevation or rubor on dependency. Positive hair growth. No varicosities. Denies rest pain or claudication pain. Each foot temperature is within normal limits. ?NEUROLOGICAL: Sharp/dull sensation intact bilaterally, position sense diminished left foot to the tibial tuberosity. Vibratory sensation diminished to the tibial tuberosity left side. ?ORTHOPEDIC: Good muscle strength 4+/5 of all flexors and extensors. Dorsi flexion of ankle , 0 degrees, plantar flexion WNL. No muscle atrophy. Slight tenderness on palaption of the left sinus tarsi. ?DERMATOLOGICAL: No masses, openings, or skin lesions noted. Normal skin temperature, normal skin turgor. ?BIOMECHANICS: STJ ROM WNL, MTJ ROM WNL, 1st MPJ ROM limited. ?SHOES: sneakers. Assessment: * Assessment: 1.?Sural neuritis, left - G5 7.82 (Primary)?2.?Pain in left foot - M79.672? Plan: * Treatment: * Procedure Codes:? * Follow Up:?prn * Billing Information: * Visit Code:? 10089 Office Visit, Est Pt., Level 3. * Procedure Codes:? * Sign off status: Completed true * Provider:?Laura Lilly DPM Date:? 09/04/2023 Generated for Margaux birmingham/Nishi/Heide on:?01/14/2025 11:10 AM EDT History and Physical Notes * HPI (History of Present Illness) Category Sub-Category Detail Notes Category Not es Constitutional This 42 y/o f jon returns to my office with a complaint of left foot pain for the last 2 months. She denies any trauma or injury to the foot. She denies any new pains or issues with her lower back. She describes an occasional burning pain on the top of the left foot. She states it sometimes radiates across the top of the foot. She also notes one day when she had a sharp burning pain under the foot which lasted for a day. She states this was very painful, and she could barely put weight on the foot. This has since resolved. She has no other foot complaints this visit. Examination Category Sub-Category Detail Notes Category Not es General Examination GENERAL: Patient appears well nourished, with NAD. VASCULAR: Dorsalis pedis pulses are 2/4 bilaterally and Posterior tibial pulses are 2/4 bilaterally. Capillary filling time within normal limits the digits. No pallor on elevation or rubor on dependency. Positive hair growth. No varicosities. Denies rest pain or claudication pain. Each foot temperature is within normal limits. NEUROLOGICAL: Sharp/dull sensation intact bilaterally, position sense diminished left foot to the tibial tuberosity. Vibratory sensation diminished to the tibial tuberosity left side. ORTHOPEDIC: Good muscle strength 4+/5 of all flexors and extensors. Dorsi flexion of ankle , 0 degrees, plantar flexion WNL. No muscle atrophy. Slight tenderness on palaption of the left sinus tarsi. DERMATOLOGICAL: No masses, openings, or skin lesions noted. Normal skin temperature, normal skin turgor. BIOMECHANICS: STJ ROM WNL, MTJ ROM WNL, 1st MPJ ROM limited. SHOES: sneakers
--- OUTSIDE RECORDS SUMMARY | 2025-01-14 11:11 | XMS_ITS | Encounter Summary ---
Author Organization [facility] Address [address] [place] [address] Care Team Providers Care Assistant At Surgery Name Role Phone Carole Jenesn MD Primary Care Provider Encounter Details Date Type Department Care Team (Latest Contact Info) Description 01/07/2025 Travel Social History Tobacco Use Types Packs/Day Years [...] Info) Description 01/14/2025 1:00 PM EDT Treatment [address] [phone] Marcela Vines CCC-BRINE PURIFIER [address] [place] [address] 01/20/2025 1:30 PM EDT Treatment [address] [phone] Marcela Vines CCC-BRINE PURIFIER [address] [place] [address] 01/28/2025 10:30 AM EDT Treatment [facility] [address] [place] [address] Marcela Vines CCC-SLP [address] [place] [address] 02/04/2025 10:30 AM EDT Treatment [facility] [address] [place] [address] Marcela Vines CCC-SLP [address] [place] [address] 02/11/2025 10:30 AM EDT Treatment [address] [place] [address] Marcela Vines CCC-SLP [address] [place] [address] 02/18/2025 10:30 AM EDT Treatment [address] [place] [address] Marcela Vines CCC-SLP [address] [place] [address] documented as of this encounter Goals Goal [...] STG 2 Speech Therapy No Marcela Vines CCC-KARLOS Note: To optimize laryngeal functioning while minimizing strain, pt will complete Vocal Function Exercises independently. ST STG 3 Speech Therapy No Marcela Vines CCC-BRINE PURIFIER Note: Pt will indep complete breathing exercises for paradoxical vocal cord motion. ST STG 4 Speech Therapy No Marcela Vines CCC-SLP Note: Pt will use laryngeal relaxation exercises to reduce tension from moderate to mild. ST LTG 4 Speech Therapy No Marcela Vines CCC-SLP Note: Pt will independently complete respiratory strength training exercises 70% of MEP/MIP for 25/25 repetitions to improve swallowing and breath support for voice. documented as of this encounter Visit Diagnoses Not on filedocumented in this encounter Care Teams Assistant At Surgery Relationship Specialty Start Date End Date [place] [address] PCP - General Internal Medicine 05/14/24 documented as of this encounter
--- OUTSIDE RECORDS SUMMARY | 2025-01-14 11:11 | XMS_ITS | Clinical Summary ---
Author Organization [facility] Address [address] [place] [address] Care Team Providers Care Drill Rig Operator Name Role Phone Carole Jensen MD Primary Care Provider Allergies Active Allergy Reactions Criticality Noted Date Comments Iodinated Contrast Media Hives Medium 05/14/2024 Lidocaine Other (See Comments) 05/14/2024 syncope Morphine Palpitations Medium 05/14/2024 Nuts Hives Medium 05/14/2024 Salicylic Acid-Sulfur Other (See Comments) 04/22 Not specified spasm Seafood Hives Medium 05/14/2024 Medications Medication Sig Dispensed Refills Start Date End Date Status fexofenadine (PATRICIA) 60 MG tablet Take 1 tablet (60 mg total) by mouth 2 (two) times a day. Administer with water only; do not administer with fruit juices. Active LORazepam (ATIVAN) 0.5 MG tablet Take 1 tablet (0.5 mg total) by mouth 3 times daily (every 8 hours) as needed. Active famotidine (PEPCID) 20 MG tablet Take 1 tablet (20 mg total) by mouth nightly as needed for heartburn. Active OMEprazole (PriLOSEC) 40 MG capsule Take 1 capsule (40 mg total) by mouth every morning before breakfast. Active Encounters Date Type Department Care Team Description 01/07/2025 11:00 AM EDT Evaluation [address] [phone] Jazmine Mai MD Falk, Janice, VIRAL-IT INFRASTRUCTURE SPECIALIST Dysphonia (Primary Dx); Dysphagia, pharyngoesophageal phase; Paradoxical vocal cord motion; Vocal cord atrophy; Laryngopharyngeal reflux (LPR) 01/07/2025 Plan of Care Documentation [address] [place] [address] 01/07/2025 Travel 12/22/2024 Transcribe Orders [address] [place] [address] Jazmine Mai MD Dysphonia (Primary Dx) from Last 3 Months Social History Tobacco Use Types Packs/Day Years [...] Orientation Heterosexual (straight) 05/14 8:25 AM EDT Plan of Treatment Upcoming Encounters Date Type Department Care Team (Late st Contact Info) Description 01/14/2025 1:00 PM EDT Treatment [address] [address] Marcela Vines CCC-SLP [address] [place] [address] 01/20/2025 1:30 PM EDT Treatment [address] [phone] Marcela Vines CCC-SLP [address] [place] [address] 01/28/2025 10:30 AM EDT Treatment [address] [address] Marcela Vines CCC-SLP [address] [place] [address] 02/04/2025 10:30 AM EDT Treatment [facility] [address] [facility] [place] [address] Marcela Vines CCC-SLP [address] [place] [address] 02/11/2025 10:30 AM EDT Treatment [facility] [address] [facility] [address] Marcela Vines CCC-SLP [address] [place] [address] 02/18/2025 10:30 AM EDT Treatment [facility] [address] [facility] [place] [address] Marcela Vines CCC-SLP [address] [place] [address] Health Maintenance Due Date Last Done Comments Hepatitis C Virus Screening 1980 DTaP/Tdap/Td Vaccines (1 - Tdap) 1999 Hepatitis B Vaccines (1 of 3 - 19+ 3-dose series) 1999 Pap Smear (Ages 21-65) 2001 Mammogram 2020 COVID-19 Vaccine (2023- season) 2024 06/06/2022, 04/08/2021, 03/18/2021 HIV Screening Completed 05/13/2024 Influenza Vaccine Completed 08/13/2024, , 10/02/2023, Additional history exists HPV Vaccines Aged Out No longer eligi ble based on patient's age to complete this topic Pneumococcal Vaccine: Pediatric (0-5 Years) and At-Risk Patients (6 to 49 Years) Aged Out No longer eligible based on patient's age to complete this topic Goals Goal Patient Goal Type Associated Problems Recent Progress Patient-Stated? Author ST LTG 1 Speech Therapy No Marcela Vines CCC-SLP Note: Pt's score on the EAT-10 questionnaire will improve by at least [address] LTG 2 Speech Therapy No Marcela Vines CCC-IT INFRASTRUCTURE SPECIALIST Note: Pt score on the Vocal Handicap Index will decrease by at least [address] LTG 3 Speech Therapy No Marcela Vines CCC-IT INFRASTRUCTURE SPECIALIST Note: Pt's score on the Vocal Cord Dysfunction Questionnaire will decrease by at least 10 points. [facility] 1 Speech Therapy No Marcela Vines CCC-IT INFRASTRUCTURE SPECIALIST Note: To optimize laryngeal functioning while minimizing strain, pt will use resonant voice and/or improved breath support at the sentence level with 80% accuracy/min cues. [facility] 2 Speech Therapy No Marcela Vines CCC-IT INFRASTRUCTURE SPECIALIST Note: To optimize laryngeal functioning while minimizing strain, pt will complete Vocal Function Exercises independently. [facility] 3 Speech Therapy No Marcela Vines CCC-IT INFRASTRUCTURE SPECIALIST Note: Pt will indep complete breathing exercises for paradoxical vocal cord motion. [facility] 4 Speech Therapy No Marcela Vines CCC-IT INFRASTRUCTURE SPECIALIST Note: Pt will use laryngeal relaxation exercises to reduce tension from moderate to mild. [facility] 4 Speech Therapy No Marcela Vines CCC[facility] Note: Pt will independently complete respiratory strength training exercises 70% of MEP/MIP for 25/25 repetitions to improve swallowing and breath support for voice. Care Teams Drill Rig Operator Relationship Specialty Start Date End Date Carole Jensen MD [address] [place] [id number] PCP - General Internal Medicine 05/14/24
== END 2025-01-14 10:20 | disposition home or self-care (01) ==
LOC: HO.HKA 09:53
PROVIDERS: PCP Internal Medicine; Visit Provider Internal Medicine Nephrology
DX: I95.89 Other hypotension (principal)
CPT/HCPCS: 99214

== ENCOUNTER → 2025-01-14 09:52 | Outpatient (BNVA) | payer OTHER, SELFPAY | PROVIDERS: PCP Internal Medicine; Visit Provider Internal Medicine Nephrology ==